=== PATIENT | male | born 1980 | race Caucasian/White ===

== ENCOUNTER 2016-10-30 00:18 | Emergency (ER) | payer MEDICAID, OTHER ==
[2016-10-30] MEDS ORDERED: NITROGLYCERIN 0.4MG SL TABLET #25 BTL SL ONE (00:44)
[2016-10-30] MEDS ORDERED: ASPIRIN 81 MG CHEWABLE TABLET PO ONE (00:44)
--- NOTE | 2016-10-30 00:49 | Emergency Department Record ---
History of Present Illness - General Chief Complaint: Chest Pain Stated Complaint: SIDE/LEFT ARM PAIN Time Seen by Provider: 10/30/16 00:37 Source: Patient Mode of Arrival: Ambulatory Limitations: No limitations - History of Present Illness Initial Comments: pt has had luq pain after running and then developed l arm pain tonight that feels like an ache that is not effected by movement. no n/sob. no cardiac risk factors Onset/Timin -: Hour(s) Onset: During rest Pain Radiation: LUE Severity: Mild Severity scale (1-10): 1 Quality: Aching Consistency: Constant Improves With: Nothing Treatments Prior to Arrival: None - Related Data Allergies Allergy/AdvReac Type Severity Reaction Status Date / Time No Known Drug Allergies Allergy Verified 10/30/16 00:22 Travel Screening - Travel/Exposure Within Last 30 Days Have you traveled within the last 30 days?: No - Travel/Exposure Within Last Year Have you traveled outside the [place] in the last year?: No - Additonal Travel Details Have you been exposed to anyone with a communicable illness?: No - Travel Symptoms Symptom Screening: Fatigue Review of Systems Reviewed: No additional complaints except as noted below Constitutional: Reports: As per HPI. Denies: Chills, Fever, Malaise, Night sweats, Weakness, Weight change Eyes: Reports: As per HPI. Denies: Eye discharge, Eye pain, Photophobia, Vision change ENT: Reports: As per HPI. Denies: Congestion, Dental pain, Ear pain, Epistaxis , Hearing loss, Throat pain Respiratory: Reports: As per HPI. Denies: Cough, Dyspnea, Hemoptysis, Stridor, Wheezes Cardiovascular: Reports: As per HPI. Denies: Arrhythmia, Chest pain, Dyspnea on exertion, Edema, Murmurs, Orthopnea, Palpitations, Paroxysmal nocturnal dyspnea, Rheumatic Fever, Syncope Endocrine: Reports: As per HPI. Denies: Fatigue, Heat or cold intolerance, Polydipsia, Polyuria Gastrointestinal: Reports: As per HPI. Denies: Abdominal pain, Constipation, Diarrhea, Hematemesis, Hematochezia, Melena, Nausea, Vomiting Genitourinary: Reports: As per HPI. Denies: Dysuria, Frequency, Hematuria, Incontinence, Retention, Testicular pain, Testicular mass, Urgency Musculoskeletal: Reports: As per HPI. Denies: Arthralgia, Back pain, Gout, Joint swelling, Myalgia, Neck pain Skin: Reports: As per HPI. Denies: Bruising, Change in color, Change in hair/ nails, Lesions, Pruritus, Rash Neurological: Reports: As per HPI. Denies: Abnormal gait, Confusion, Headache, Numbness, Paresthesias, Seizure, Tingling, Tremors, Vertigo, Weakness Psychiatric: Reports: As per HPI. Denies: Anxiety, Auditory hallucinations, Depression, Homicidal thoughts, Suicidal thoughts, Visual hallucinations Hematological/Lymphatic: Reports: As per HPI. Denies: Anemia, Blood Clots, Easy bleeding, Easy bruising, Swollen glands Past Medical History - SOCIAL HISTORY Smoking Status: Never smoker Alcohol Use: None Drug Use: None - RESPIRATORY Hx Respiratory Disorders: No - CARDIOVASCULAR Hx Cardio Disorders: Yes Comment:: syncope - NEURO Hx Neuro Disorders: No - GI Hx GI Disorders: No - Hx Genitourinary Disorders: No - ENDOCRINE Hx Endocrine Disorders: No - MUSCULOSKELETAL Hx Musculoskeletal Disorders: No - PSYCH Hx Psych Problems: No - HEMATOLOGY/ONCOLOGY Hx Hematology/Oncology Disorders: No Family Medical History Any Significant Family History?: Yes Family Hx Comment (NOT TO BE USED IN PLACE OF ITEMS BELOW): Sister-long QT syndrome (multiple syncopal episodes) Physical Exam - General General Appearance: Alert, Oriented x3, Cooperative, Mild distress - Head Head exam: Normal inspection - Eye Eye exam: Normal appearance, PERRL, EOMI Pupils: Normal accommodation - ENT ENT exam: Normal exam, Mucous membranes moist, Normal external ear exam, Normal orophraynx Ear exam: Normal external inspection. negative: External canal tenderness Nasal Exam: Normal inspection. negative: Discharge, Sinus tenderness Mouth exam: Normal external inspection, Tongue normal Teeth exam: Normal inspection. negative: Dental caries Throat exam: Normal inspection. negative: Tonsillar erythema, Tonsillar exudate - Neck Neck exam: Normal inspection, Full ROM. negative: Tenderness - Respiratory Respiratory exam: Normal lung sounds bilaterally. negative: Respiratory distress - Cardiovascular Cardiovascular Exam: Regular rate, Normal rhythm, Normal heart sounds - GI/Abdominal GI/Abdominal exam: Soft, Normal bowel sounds. negative: Tenderness - Rectal Rectal exam: Deferred - exam: Deferred - Extremities Extremities exam: Normal inspection, Full ROM, Normal capillary refill. negative: Tenderness - Back Back exam: Reports: Normal inspection, Full ROM. Denies: Muscle spasm, Rash noted, Tenderness - Neurological Neurological exam: Alert, CN II-XII intact, Normal gait, Oriented X3 - Psychiatric Psychiatric exam: Normal affect, Normal mood - Skin Skin exam: Dry, Intact, Normal color, Warm Course Vital Signs 10/30/16 00:30 Temperature 97.8 F Pulse Rate 78 Respiratory 20 Rate Blood Pressure 136/87 Pulse Ox 98 Medical Decision Making - Lab Data Result diagrams: 10/30/16 00:50 10/30/16 00:50 Disposition Disposition: Discharge Clinical Impression: Pain of left upper extremity Disposition: Home, Self-Care Condition: (1) Good Instructions: Chest Pain (ED) Additional Instructions: follow up with family doctor for further evaluation. return sooner if worse. take aspirin 81mg a day Forms: Patient Portal Access
[2016-10-30 01:03] LABS: BASO % 0.6 % (0-6); EOS % 7.2 % (0-6); GRAN % 49.2 % (47-80); HEMATOCRIT 43.8 % (42.0-52.0); HEMOGLOBIN 14.2 gm/dl (14.0-18.0); LYMPH % 34.2 % (16-45); MEAN CELL VOLUME 88.3 fl (81-97); MEAN CORPUSCULAR HEMOGLOBIN 28.6 pg (27-33); MEAN CORPUSCULAR HGB CONC 32.4 g/dl (32-36); MEAN PLATELET VOLUME 10.7 fl (7.4-10.4); MONO % 8.8 % (0-9); PLATELET COUNT 268 K/uL (130-400); RED BLOOD COUNT 4.96 M/uL (4.40-5.70); RED CELL DISTRIBUTION WIDTH 12.3 % (11.5-14.5); WHITE BLOOD COUNT W/O DIFF 9.6 K/uL (4.2-12.2)
[2016-10-30 01:11] LABS: ANION GAP 9.9 (7-16); BLOOD UREA NITROGEN 21 mg/dL (9-20); CARBON DIOXIDE 28.1 mmol/L (22-30); CREATINE PHOSPHOKINASE 157 U/L (55-170); CREATININE 1.3 mg/dL (0.66-1.25); EST GLOMERULAR FILTRATION RATE > 60 ml/min; GLUCOSE,RANDOM 97 mg/dL (70-110)
[2016-10-30 01:23] LABS: CKMB 0.8 ug/L (0-6)
[2016-10-30 01:24] LABS: TROPONIN I < 0.012 ng/mL (0.00-0.034)
[2016-10-30] MEDS ORDERED: 0.9 % SODIUM CHLORIDE 1,000 ML BAG IV ONE (02:04)
[2016-10-30] MEDS ORDERED: KETOROLAC 30 MG/ML VIAL IVP ONE (02:48)
[2016-10-30] MEDS ORDERED: AZITHROMYCIN 500 MG TABLET PO ONE (02:48)
--- NOTE | 2016-10-30 04:02 | Emergency Department Record ---
History of Present Illness - General Chief Complaint: Chest Pain Stated Complaint: SIDE/LEFT ARM PAIN Time Seen by Provider: 10/30/16 00:37 Source: Patient Mode of Arrival: Ambulatory Limitations: No limitations - History of Present Illness Onset/Timin -: Hour(s) Onset: During rest Pain Radiation: LUE Severity: Mild Severity scale (1-10): 1 Quality: Aching Consistency: Constant Improves With: Nothing Treatments Prior to Arrival: None - Related Data Allergies Allergy/AdvReac Type Severity Reaction Status Date / Time No Known Drug Allergies Allergy Verified 10/30/16 00:22 Travel Screening - Travel/Exposure Within Last 30 Days Have you traveled within the last 30 days?: No - Travel/Exposure Within Last Year Have you traveled outside the [place] in the last year?: No - Additonal Travel Details Have you been exposed to anyone with a communicable illness?: No - Travel Symptoms Symptom Screening: Fatigue Review of Systems Constitutional: Reports: As per HPI. Denies: Chills, Fever, Malaise, Night sweats, Weakness, Weight change Eyes: Reports: As per HPI. Denies: Eye discharge, Eye pain, Photophobia, Vision change ENT: Reports: As per HPI. Denies: Congestion, Dental pain, Ear pain, Epistaxis , Hearing loss, Throat pain Respiratory: Reports: As per HPI. Denies: Cough, Dyspnea, Hemoptysis, Stridor, Wheezes Cardiovascular: Reports: As per HPI. Denies: Arrhythmia, Chest pain, Dyspnea on exertion, Edema, Murmurs, Orthopnea, Palpitations, Paroxysmal nocturnal dyspnea, Rheumatic Fever, Syncope Endocrine: Reports: As per HPI. Denies: Fatigue, Heat or cold intolerance, Polydipsia, Polyuria Gastrointestinal: Reports: As per HPI. Denies: Abdominal pain, Constipation, Diarrhea, Hematemesis, Hematochezia, Melena, Nausea, Vomiting Genitourinary: Reports: As per HPI. Denies: Dysuria, Frequency, Hematuria, Incontinence, Retention, Testicular pain, Testicular mass, Urgency Musculoskeletal: Reports: As per HPI. Denies: Arthralgia, Back pain, Gout, Joint swelling, Myalgia, Neck pain Skin: Reports: As per HPI. Denies: Bruising, Change in color, Change in hair/ nails, Lesions, Pruritus, Rash Neurological: Reports: As per HPI. Denies: Abnormal gait, Confusion, Headache, Numbness, Paresthesias, Seizure, Tingling, Tremors, Vertigo, Weakness Psychiatric: Reports: As per HPI. Denies: Anxiety, Auditory hallucinations, Depression, Homicidal thoughts, Suicidal thoughts, Visual hallucinations Hematological/Lymphatic: Reports: As per HPI. Denies: Anemia, Blood Clots, Easy bleeding, Easy bruising, Swollen glands Past Medical History - SOCIAL HISTORY Smoking Status: Never smoker Alcohol Use: None Drug Use: None - RESPIRATORY Hx Respiratory Disorders: No - CARDIOVASCULAR Hx Cardio Disorders: Yes Comment:: syncope - NEURO Hx Neuro Disorders: No - GI Hx GI Disorders: No - Hx Genitourinary Disorders: No - ENDOCRINE Hx Endocrine Disorders: No - MUSCULOSKELETAL Hx Musculoskeletal Disorders: No - PSYCH Hx Psych Problems: No - HEMATOLOGY/ONCOLOGY Hx Hematology/Oncology Disorders: No Family Medical History Any Significant Family History?: Yes Family Hx Comment (NOT TO BE USED IN PLACE OF ITEMS BELOW): Sister-long QT syndrome (multiple syncopal episodes) Physical Exam - General Limitations: No limitations Course Vital Signs 10/30/16 10/30/16 10/30/16 00:30 01:00 01:07 Temperature 97.8 F Pulse Rate 78 Pulse Rate [ 75 Catcher Helper ] Pulse Rate [ 83 Pulse Ox Probe] Respiratory 20 20 20 Rate Blood Pressure 136/87 Blood Pressure 138/89 113/77 [Right Arm] Pulse Ox 98 98 96 10/30/16 10/30/16 10/30/16 01:33 02:03 02:45 Temperature Pulse Rate Pulse Rate [ 75 81 75 Catcher Helper ] Pulse Rate [ Pulse Ox Probe] Respiratory 20 18 18 Rate Blood Pressure Blood Pressure 117/76 109/71 121/82 [Right Arm] Pulse Ox 100 99 99 Medical Decision Making - Management Options MDM Management: Additional Work-up Planned (e.g. ADM/Transfer/OP Study) - Data Complexity MDM Data: Labs Ordered and/or Reviewed, X-Ray Ordered and/or Reviewed, EKG Ordered and/or Reviewed - Lab Data Result diagrams: 10/30/16 00:50 10/30/16 00:50 Lab Results 10/30/16 10/30/16 10/30/16 Range/Units 00:50 00:50 03:00 WBC 9.6 (4.2-12.2) K/uL RBC 4.96 (4.40-5.70) M/uL Hgb 14.2 (14.0-18.0) gm/dl Hct 43.8 (42.0-52.0) % MCV 88.3 (81-97) fl MCH 28.6 (27-33) pg MCHC 32.4 (32-36) g/dl RDW 12.3 (11.5-14.5) % Plt Count 268 (130-400) K/uL MPV 10.7 H (7.4-10.4) fl Gran % 49.2 (47-80) % Lymphocytes % 34.2 (16-45) % Monocytes % 8.8 (0-9) % Eosinophils % 7.2 H (0-6) % Basophils % 0.6 (0-6) % Sodium 142 (136-145) mmol/L Potassium 4.1 (3.5-5.1) mmol/L Chloride 104 (98-107) mmol/L Carbon Dioxide 28.1 (22-30) mmol/L Anion Gap 9.9 (7-16) BUN 21 H (9-20) mg/dL Creatinine 1.3 H (0.66-1.25) mg/dL Estimated GFR > 60 ml/min Random Glucose 97 (70-110) mg/dL Calcium 9.0 (8.5-10.1) mg/dL Creatine Kinase 157 (55-170) U/L CK-MB (CK-2) 0.8 (0-6) ug/L Troponin I < 0.012 < 0.012 (0.00-0.034) ng/mL - EKG Data -: EKG Interpreted by Id EKG: Abnormal EKG (prolonged qt) Disposition Clinical Impression: Left arm pain Disposition: Home, Self-Care Condition: (1) Good Instructions: Chest Pain (ED) Additional Instructions: follow up with family doctor for further evaluation. return sooner if worse. take aspirin 81mg a day Forms: Patient Portal Access
--- NOTE | 2016-10-30 04:04 | Emergency Department Record ---
History of Present Illness - General Chief Complaint: Chest Pain Stated Complaint: SIDE/LEFT ARM PAIN Time Seen by Provider: 10/30/16 00:37 Source: Patient Mode of Arrival: Ambulatory Limitations: No limitations - History of Present Illness Onset/Timin -: Hour(s) Onset: During rest Pain Radiation: LUE Severity: Mild Severity scale (1-10): 1 Quality: Aching Consistency: Constant Improves With: Nothing Treatments Prior to Arrival: None - Related Data Allergies Allergy/AdvReac Type Severity Reaction Status Date / Time No Known Drug Allergies Allergy Verified 10/30/16 00:22 Travel Screening - Travel/Exposure Within Last 30 Days Have you traveled within the last 30 days?: No - Travel/Exposure Within Last Year Have you traveled outside the [place] in the last year?: No - Additonal Travel Details Have you been exposed to anyone with a communicable illness?: No - Travel Symptoms Symptom Screening: Fatigue Review of Systems Constitutional: Reports: As per HPI. Denies: Chills, Fever, Malaise, Night sweats, Weakness, Weight change Eyes: Reports: As per HPI. Denies: Eye discharge, Eye pain, Photophobia, Vision change ENT: Reports: As per HPI. Denies: Congestion, Dental pain, Ear pain, Epistaxis , Hearing loss, Throat pain Respiratory: Reports: As per HPI. Denies: Cough, Dyspnea, Hemoptysis, Stridor, Wheezes Cardiovascular: Reports: As per HPI. Denies: Arrhythmia, Chest pain, Dyspnea on exertion, Edema, Murmurs, Orthopnea, Palpitations, Paroxysmal nocturnal dyspnea, Rheumatic Fever, Syncope Endocrine: Reports: As per HPI. Denies: Fatigue, Heat or cold intolerance, Polydipsia, Polyuria Gastrointestinal: Reports: As per HPI. Denies: Abdominal pain, Constipation, Diarrhea, Hematemesis, Hematochezia, Melena, Nausea, Vomiting Genitourinary: Reports: As per HPI. Denies: Dysuria, Frequency, Hematuria, Incontinence, Retention, Testicular pain, Testicular mass, Urgency Musculoskeletal: Reports: As per HPI. Denies: Arthralgia, Back pain, Gout, Joint swelling, Myalgia, Neck pain Skin: Reports: As per HPI. Denies: Bruising, Change in color, Change in hair/ nails, Lesions, Pruritus, Rash Neurological: Reports: As per HPI. Denies: Abnormal gait, Confusion, Headache, Numbness, Paresthesias, Seizure, Tingling, Tremors, Vertigo, Weakness Psychiatric: Reports: As per HPI. Denies: Anxiety, Auditory hallucinations, Depression, Homicidal thoughts, Suicidal thoughts, Visual hallucinations Hematological/Lymphatic: Reports: As per HPI. Denies: Anemia, Blood Clots, Easy bleeding, Easy bruising, Swollen glands Past Medical History - SOCIAL HISTORY Smoking Status: Never smoker Alcohol Use: None Drug Use: None - RESPIRATORY Hx Respiratory Disorders: No - CARDIOVASCULAR Hx Cardio Disorders: Yes Comment:: syncope - NEURO Hx Neuro Disorders: No - GI Hx GI Disorders: No - Hx Genitourinary Disorders: No - ENDOCRINE Hx Endocrine Disorders: No - MUSCULOSKELETAL Hx Musculoskeletal Disorders: No - PSYCH Hx Psych Problems: No - HEMATOLOGY/ONCOLOGY Hx Hematology/Oncology Disorders: No Family Medical History Any Significant Family History?: Yes Family Hx Comment (NOT TO BE USED IN PLACE OF ITEMS BELOW): Sister-long QT syndrome (multiple syncopal episodes) Physical Exam - General Limitations: No limitations Course Vital Signs 10/30/16 10/30/16 10/30/16 00:30 01:00 01:07 Temperature 97.8 F Pulse Rate 78 Pulse Rate [ 75 Rn Managed Care ] Pulse Rate [ 83 Pulse Ox Probe] Respiratory 20 20 20 Rate Blood Pressure 136/87 Blood Pressure 138/89 113/77 [Right Arm] Pulse Ox 98 98 96 10/30/16 10/30/16 10/30/16 01:33 02:03 02:45 Temperature Pulse Rate Pulse Rate [ 75 81 75 Rn Managed Care ] Pulse Rate [ Pulse Ox Probe] Respiratory 20 18 18 Rate Blood Pressure Blood Pressure 117/76 109/71 121/82 [Right Arm] Pulse Ox 100 99 99 - Reevaluation(s) Reevaluation #1: 10/30/16 04:02 pts pain started at 2230 so troponin was repeated at 0300. pt pain free Medical Decision Making - Lab Data Result diagrams: 10/30/16 00:50 10/30/16 00:50 Lab Results 10/30/16 10/30/16 10/30/16 Range/Units 00:50 00:50 03:00 WBC 9.6 (4.2-12.2) K/uL RBC 4.96 (4.40-5.70) M/uL Hgb 14.2 (14.0-18.0) gm/dl Hct 43.8 (42.0-52.0) % MCV 88.3 (81-97) fl MCH 28.6 (27-33) pg MCHC 32.4 (32-36) g/dl RDW 12.3 (11.5-14.5) % Plt Count 268 (130-400) K/uL MPV 10.7 H (7.4-10.4) fl Gran % 49.2 (47-80) % Lymphocytes % 34.2 (16-45) % Monocytes % 8.8 (0-9) % Eosinophils % 7.2 H (0-6) % Basophils % 0.6 (0-6) % Sodium 142 (136-145) mmol/L Potassium 4.1 (3.5-5.1) mmol/L Chloride 104 (98-107) mmol/L Carbon Dioxide 28.1 (22-30) mmol/L Anion Gap 9.9 (7-16) BUN 21 H (9-20) mg/dL Creatinine 1.3 H (0.66-1.25) mg/dL Estimated GFR > 60 ml/min Random Glucose 97 (70-110) mg/dL Calcium 9.0 (8.5-10.1) mg/dL Creatine Kinase 157 (55-170) U/L CK-MB (CK-2) 0.8 (0-6) ug/L Troponin I < 0.012 < 0.012 (0.00-0.034) ng/mL Disposition Clinical Impression: Left arm pain Disposition: Home, Self-Care Condition: (1) Good Instructions: Chest Pain (ED) Additional Instructions: follow up with family doctor for further evaluation. return sooner if worse. take aspirin 81mg a day Forms: Patient Portal Access
== END 2016-10-30 04:03 | disposition home or self-care (01) ==
LOC: ER 00:18
DX: M79.622 Pain in left upper arm (principal); R07.9 Chest pain, unspecified; I45.81 Long QT syndrome
CPT/HCPCS: 71020; 80048; 82550; 82553; 84484; 85025; 93005; 93010; 99284; J7030